=== PATIENT | male | born 1960 | race Caucasian/White ===

== ENCOUNTER → 2016-09-05 | Day surgery (SDC) | payer OTHER ==
[2016-08-24 08:14] VITALS: BMI 23.0
[~2016-09-05] VITALS: Ht 180.3 cm; Wt 75.0 kg
[~2016-09-05] MED LIST: ASPIRIN PO; LIDOCAINE HCL 2% 2 ML VIAL (20MG/ML) ONE; NAPR1TAB9 PO; OMEP20CA9 PO; PROPOFOL IV EMULSION 10 MG/ML 20 ML VIAL IV ONE; SODIUM CHLORIDE 0.9% 500ML 500 ML IV ONE; [UNRECOGNIZED DRUG - OTHER] PO
[2016-09-05 10:01] VITALS: TEMP 36.7
[2016-09-05 10:02] VITALS: Ht 180.3 cm; Wt 75.0 kg
--- NOTE | 2016-09-05 10:54 | Endo History and Physical ---
History & Physical Date of Service: Sep 05, 2016. 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 Past Medical History Hypertension Past Surgical History Hx Cardiac Surgery: No Hx Internal Defibrillator: No Hx Pacemaker: No Hx Abdominal Surgery: No Hx of Implantable Prosthesis: No Hx Post-Op Nausea and Vomiting: No Hx Cancer Surgery: No Hx Thoracic Surgery: No Hx Orthopedic: Yes (CYST WRIST REMOVAL, CERVICAL FUSION, LUMBAR DISCECTOMY, RT KNEE ARTHROSCOPY) Hx Urinary Tract Surgery: Yes (VASECTOMY AND REVERSAL) Family History Colon CA, IBD Social History Smoking Status: Never Smoker Hx Substance Use: No Hx Alcohol Use: Yes (2-3 BEERS DAILY) Allergies Coded Allergies: BEE STING (Verified Allergy, Unknown, SWELLING AND DIARRHEA, 08/24/16) NO KNOWN DRUG ALLERGIES (Verified Allergy, Unknown, ., 08/24/16) Current Medications Reported Home Medications Medications Dose Route/Sig Max Daily Dose Days Date Category [Bayre Back And Body] 2 Tabs PO DAILY 09/05/16 Reported Prilosec (Omeprazole) 20 Mg Cap 20 Mg PO QAM 08/24/16 Reported Aleve (Naproxen) 220 Mg Tab 220 Mg PO DAILY PRN 08/24/16 Reported Vital Signs Weight (Kilograms): 75.00 Height (Feet): 5 Height (Inches): 11 Date Time Temp Pulse Resp B/P Pulse Ox O2 Delivery O2 Flow Rate FiO2 09/05/16 10:01 36.7 77 22 147/92 96 Room Air Physical Exam General Appearance: WD/WN, no apparent distress Respiratory/Chest: Auscultation: breath sounds normal Cardiovascular: Heart Auscultation: RRR Abdomen: Bowel Sounds: normal Inspection & Palpation: soft, non-distended, no tenderness, guarding & rebound Assessment and Plan Assessment: 56 yo CM who presents for colonoscopy secondary to family history of colon cancer (sister). Plan: Proceed with colonoscopy.
--- NOTE | 2016-09-05 11:19 | GI REPORT ---
Procedure Date: 09/05/2016 10:45 AM THIS REPORT HAS BEEN AMENDED Addendum Number: 1 Addendum Date: 09/05/2016 11:23:20 AM The indication for this procedure should read Family history of colon cancer in Sister. Procedure: Colonoscopy Indications: Chronic diarrhea Medicines: Monitored Anesthesia Care Complications: No immediate complications. Estimated Blood Loss: Estimated blood loss: none. Procedure: Pre-Anesthesia Assessment: - Prior to the procedure, a History and Physical was performed, and patient medications and allergies were reviewed. The patient's tolerance of previous anesthesia was also reviewed. The risks and benefits of the procedure and the sedation options and risks were discussed with the patient. All questions were answered, and informed consent was obtained. Prior Anticoagulants: The patient has taken aspirin, last dose was 1 day prior to procedure. ASA Grade Assessment: II - A patient with mild systemic disease. After reviewing the risks and benefits, the patient was deemed in satisfactory condition to undergo the procedure. After I obtained informed consent, the scope was passed under direct vision. Throughout the procedure, the patient's blood pressure, pulse, and oxygen saturations were monitored continuously. The scope was introduced through the anus and advanced to the terminal ileum. The colonoscopy was performed without difficulty. The patient tolerated the procedure well. The quality of the bowel preparation was good. The terminal ileum, ileocecal valve, appendiceal orifice, and rectum were photographed. Findings: Non-bleeding internal hemorrhoids were found during retroflexion. The hemorrhoids were small. The exam was otherwise without abnormality. Impression: - Non-bleeding internal hemorrhoids. - The examination was otherwise normal. - No specimens collected. Recommendation: - Resume previous diet. - Continue present medications. - Repeat colonoscopy in 5 years for surveillance. - Return to primary care physician as previously scheduled. Dick Muniz, 09/05/2016 11:18:28 AM This report has been signed electronically. Note Initiated On: 09/05/2016 10:45 AM I attest to the content of the Intraoperative Record and orders documented therein, exceptions below Dick PrietoEva Muniz, DO 09/05/2016 11:23:59 AM This report has been signed electronically.
--- NOTE | 2016-09-05 11:21 | Discharge Instructions ---
Endoscopy Patient Instructions Date / Procedure(s) Performed Sep 05, 2016. Colonoscopy Allergy Information Coded Allergies: BEE STING (Verified Allergy, Unknown, SWELLING AND DIARRHEA, 08/24/16) NO KNOWN DRUG ALLERGIES (Verified Allergy, Unknown, ., 08/24/16) Discharge Date / Findings Sep 05, 2016. Internal hemorrhoids Medication Instructions Stopped Medication(s): USES DIA BACK AND AND QD LAST DOSE 09/05/16 OK to resume all medications today as prescribed Reported Home Medications Medications Dose Route/Sig Max Daily Dose Days Date Category [Bayre Back And Body] 2 Tabs PO DAILY 09/05/16 Reported Prilosec (Omeprazole) 20 Mg Cap 20 Mg PO QAM 08/24/16 Reported Aleve (Naproxen) 220 Mg Tab 220 Mg PO DAILY PRN 08/24/16 Reported Provider Instructions Activity Restrictions - No exercising or heavy lifting for 24 hours. - Do not drink alcohol the day of the procedure. - Do not drive a car or operate machinery until the day after the procedure. - Do not make any important decisions or sign important papers in 24 hours after the procedure. Following Day: - Return to full activity which may include returning to work/school. Diet Start your diet with liquids and light foods (jello, soup, juice, toast). Then eat your usual diet if not nauseated. Treatment For Common After Affects For mild abdominal pain, bloating, or excessive gas: - Rest - Eat lightly - Lie on right side Follow-Up Information Follow-up with DR ANETA ROSAS as scheduled Anesthesia Information What You Should Know You have had a procedure that required some medicine to reduce anxiety and discomfort. This treatment is called moderate sedation. After receiving the treatment, you may be sleepy, but you will be able to breathe on your own. The effects of the treatment may last for several hours. Follow these instructions along with Activity/Diet recommendations noted above: * Do NOT do anything where dizziness or clumsiness would be dangerous. * Rest quietly at home today, then you can be up and about tomorrow. * Have a responsible person stay with you the rest of today. * You may have had an I.V. today. If so, you may take the dressing off later today. Recommendations Call your doctor if: * Trouble breathing * Continuous vomiting for more than 24 hours * Temperature above 101 degrees * Severe abdominal pain or bloating * Pain not relieved by pain medicine ordered * There is increased drainage or redness from any incision * A large amount of rectal bleeding greater than 2-3 tablespoons. (If you had a polyp/s removed or have hemorrhoids, a small amount of blood - from the rectum is to be expected.) * You have any unanswered questions or concerns. IN THE EVENT OF A SERIOUS EMERGENCY, GO TO THE NEAREST EMERGENCY ROOM Your discharge instructions were prepared by provider Dick Muniz. Patient Instructions Signature Page Samuel Hackett Patient (or Guardian) Signature/Date: I have read and understand the instructions given to me by my caregivers. Caregiver/RN/Doctor Signature/Date: The above-named patient and/or guardian has received patient instructions on this date. + Original Patient Signature Page (only) stays with chart. Please make copy for patient.
[2016-09-05 11:48] VITALS: BP 139/90; PULSE 64; O2SAT 97
--- NOTE | 2016-09-05 11:49 | Anesthesiology Progress Note ---
Anesthesia Post Op Note Date & Time Sep 05, 2016 at 11:48 Vital Signs Pain Intensity: 0 Vital Signs Past 12 Hours Date Time Temp Pulse Resp B/P Pulse Ox O2 Delivery O2 Flow Rate FiO2 09/05/16 11:33 62 20 130/79 96 Room Air 09/05/16 11:18 73 22 134/82 98 Room Air 09/05/16 10:01 36.7 77 22 147/92 96 Room Air Notes Mental Status: alert / awake / arousable, participated in evaluation Pt Amnestic to Procedure: Yes Nausea / Vomiting: adequately controlled Pain: adequately controlled Airway Patency, RR, SpO2: stable & adequate BP & HR: stable & adequate Hydration State: stable & adequate Anesthetic Complications: no major complications apparent
== END | disposition home or self-care (01) ==
LOC: C.GI 09:44
PROVIDERS: ATTEND Internal Medicine
DX: Z12.11 Encounter for screening for malignant neoplasm of colon (principal); K52.9 Noninfective gastroenteritis and colitis, unspecified; K64.8 Other hemorrhoids; Z80.0 Family history of malignant neoplasm of digestive organs; Z83.79 Family history of other diseases of the digestive system; I10 Essential (primary) hypertension